=== PATIENT | female | born 1960 | race Caucasian/White ===

== ENCOUNTER 2017-08-12 18:12 | Emergency (ER) | payer BC ==
[2017-08-12] MEDS ORDERED: predniSONE TAB* 20 MG PO ONE (18:54)
[2017-08-12] MEDS ORDERED: Albuterol/Ipratropium NEB.SOL* Albuterol 2.5 MG/Ipratropium 0.5 MG 3 ML INH ONE (18:54)
[2017-08-12] MEDS ORDERED: Clarithromycin TAB* 500 MG PO ONE (20:23)
[2017-08-12] MEDS ORDERED: Albuterol HFA INHALER* 8 gm MDI INH ONE (20:23)
[2017-08-12 20:26] VITALS: BP 144/72
--- NOTE | 2017-08-12 22:01 | ED ---
Franco Hernandez Julia, scribed for Mars Houston MD on 08/12/17 at 1839 . Respiratory - HPI Summary HPI Summary: This patient is a 57 year old F presenting to [facility] accompanied by her with a chief complaint of chest and lung pain for the past five days. Patient reports chest congestion, productive cough with light coyle sputum and an explosion in back with cough. The patient rates the pain 6/10 in severity. Symptoms aggravated by cough. Symptoms unchanged by Mucinex. She states she gets bronchitis this time almost every year. - History of Current Complaint Chief Complaint: EDUpperRespComplaint Stated Complaint: DIFFICULTY BREATHING Time Seen by Provider: 08/12/17 18:31 Hx Obtained From: Patient Onset/Duration: Lasting Days Timing: Constant Pain Intensity: 6 Character: Cough (Productive) Sputum Color: Ortiz Aggravating Factor(s): Other - cough Alleviating Factor(s): Nothing Associated Signs and Symptoms: Chest Pain with Cough - chest congestion Related History: Similar Episode/Dx as - bronchitis - Allergy/Home Medications Allergies/Adverse Reactions: Allergies Allergy/AdvReac Type Severity Reaction Status Date / Time No Known Allergies Allergy Verified 08/12/17 18:35 Home Medications: Home Medications Cholecalciferol TAB* [Vitamin D TAB*] 1,000 unit PO DAILY 08/12/17 [History Confirmed 08/12/17] Citalopram TAB* [CeleXA TAB*] 40 mg PO DAILY 08/12/17 [History Confirmed ] Ibuprofen TAB* [Motrin TAB* 400 MG] 400 mg PO QPM 08/12/17 [History Confirmed ] PMH/Surg Hx/FS Hx/Imm Hx Endocrine/Hematology History: Denies: Hx Diabetes, Hx Thyroid Disease Cardiovascular History: Denies: Hx Congenital Heart Disease, Hx Congestive Heart Failure, Hx Hypertension, Hx Pacemaker/ICD Respiratory History: Reports: Hx Chronic Bronchitis Denies: Hx Asthma, Hx Chronic Obstructive Pulmonary Disease (COPD) GI History: Denies: Hx Ulcer Musculoskeletal History: Reports: Hx Back Problems Denies: Hx Osteoporosis Sensory History: Denies: Hx Hearing Aid Neurological History: Denies: Hx CVA, Hx Seizures - this admit ?SZ Psychiatric History: Denies: Hx Panic Disorder - Cancer History Hx Chemotherapy: No Hx Radiation Therapy: No - Surgical History Surgery Procedure, Year, and Place: T & A. Bariatric Infectious Disease History: No Infectious Disease History: Denies: Hx Hepatitis, Hx Human Immunodeficiency Virus (HIV), Traveled Outside the [place] in Last 30 Days - Family History Known Family History: Positive: Cardiac Disease - [place], Other - lung and prostate CA - Social History Alcohol Use: Rare Substance Use Type: Reports: None Smoking Status (MU): Former Smoker Review of Systems Positive: Chest Pain Positive: Shortness Of Breath, Cough, Other - chest congestion All Other Systems Reviewed And Are Negative: Yes Physical Exam - Summary Physical Exam Summary: Appearance: The patient is well-nourished in no acute distress and in no acute pain. Skin: The skin is warm and dry and skin color reflects adequate perfusion. HEENT: The head is normocephalic and atraumatic. The pupils are equal and reactive. The conjunctivae are clear and without drainage. Nares are patent and without drainage. Mouth reveals moist mucous membranes and the throat is without erythema and exudate. The external ears are intact. The ear canals are patent and without drainage. The tympanic membranes are intact. Neck: the neck is supple with full range of motion and non-tender. There are no carotid bruits. There is no neck vein distension. Respiratory: Chest is non-tender. Lungs have expiratory wheezes and breath sounds are tight with increased E:I ratio. Cardiovascular: Heart is regular rate and rhythm. There is no murmur or rub auscultated. There is no peripheral edema and pulses are symmetrical and equal. Abdomen: The abdomen is soft and non-tender. There are normal bowel sounds heard in all four quadrants and there is no organomegaly palpated. Musculoskeletal: There is no back tenderness noted. Extremities are non-tender with full range of motion. There is good capillary refill. There is no peripheral edema or calf tenderness elicited. Neurological: Patient is alert and oriented to person, place and time. The patient has symmetrical motor strength in all four extremities. Cranial nerves are grossly intact. Deep tendon reflexes are symmetrical and equal in all four extremities. Psychiatric: The patient has an appropriate affect and does not exhibit any anxiety or depression. Triage Information Reviewed: Yes Vital Signs On Initial Exam: Initial Vitals Temp Pulse Resp BP Pulse Ox 98.3 F 88 18 145/73 99 08/12/17 18:18 08/12/17 18:18 02/11/18 18:18 08/12/17 18:18 08/12/17 18:18 Vital Signs Reviewed: Yes Diagnostics - Vital Signs Vital Signs Temp Pulse Resp BP Pulse Ox 08/12/17 18:18 98.3 F 88 18 145/73 99 - Laboratory Lab Statement: Any lab studies that have been ordered have been reviewed, and results considered in the medical decision making process. Disposition - Course Course Of Treatment: Ms. Ascencio presented with 5 days of URI symptoms and now having some trouble breathing and CP with coughing. She was quite tight and got a lot of improvement with a nebulizer. I will treat her for bronchitis with bronchospasm. - Diagnoses Provider Diagnoses: Bronchitis with bronchospasm Discharge - Discharge Plan Condition: Stable Disposition: HOME Prescriptions: Clarithromycin TAB* [Biaxin TAB*] 500 mg PO BID #20 tab methylPREDNISolone [Medrol Dosepak 4 MG*] 4 mg PO .SEE TRACE INSTRUCTION #1 tab Patient Education Materials: Acute Bronchitis (ED) Forms: *Work Release Referrals: Angeline Vasquez MD [Primary Care Provider] - 1 Week Additional Instructions: RETURN TO THE EMERGENCY DEPARTMENT FOR CHANGING OR WORSENING SYMPTOMS. The documentation as recorded by the Franco dobson Julia accurately reflects the service I personally performed and the decisions made by , Mars Houston MD.
== END 2017-08-12 20:33 | disposition home or self-care (01) ==
LOC: ED 18:12
DX: J40 Bronchitis, not specified as acute or chronic (principal); J98.01 Acute bronchospasm
CPT/HCPCS: 94640; 99282; A9270-GY; J7512

== ENCOUNTER 2018-11-11 11:35 | Day surgery (SDC) | payer OTHER, BC ==
[2018-11-11] MEDS ORDERED: Lidocaine 1% MPF wEPI 200,000* 30 ML SDV ONE (12:17)
[2018-11-11] MEDS ORDERED: Sodium Bicarbonate 8.4%* 50 ML SYRINGE ONE (12:17)
[2018-11-11] MEDS ORDERED: Bupivacaine 0.25% SDV PF* 10 ML VIAL INJ ONE (13:43)
[2018-11-11] MEDS ORDERED: Lidocain 1% EPI 1:100,000 * 30 ML MDV ONE (13:43)
[2018-11-11] MEDS ORDERED: Lidocaine 1% INJ* 10 MG/ML 30 ML SDV ONE (13:53)
[2018-11-11] MEDS ORDERED: Buffered Lidocaine 1% SYRIN* 1 ML/SYRINGE INTRADERM ONE (13:54)
[2018-11-11 15:09] VITALS: BP 151/81
--- NOTE | 2018-11-11 23:43 | OP ---
DATE OF OPERATION: 11/11/18 - SDS DATE OF : 56 SURGEON: Kolby Godwin MD ROUNDING MACHINE OPERATOR: MARYBEL Ivy ANESTHESIOLOGIST: None. ANESTHESIA: Local only with 1% lidocaine with epinephrine and bicarbonate. PRE-OP DIAGNOSIS: Right ring trigger finger. POST-OP DIAGNOSIS: Right ring trigger finger. OPERATIVE PROCEDURE: Right ring trigger finger release at the A1 bhupinder with tenosynovectomy. INDICATIONS: Candace has very severe trigger finger. She is unable to fully close the hand. I told that we needed to intervene to regain her motion. She understands this and she wishes to proceed. ESTIMATED BLOOD LOSS: 5 mL. COMPLICATIONS: None. FINDINGS: See above and below. DESCRIPTION OF PROCEDURE: Candace was seen in the preoperative holding area. The correct side, site, and procedure were identified. I did anesthetize the finger in the preoperative area with the local anesthetic and then came back to the operating room where the arm was prepped and draped in the usual fashion. I made a 1 cm longitudinal incision over the A1 bhupinder. Full-thickness flaps were bluntly raised off the tendon sheath. Ragnell retractors were placed. The A1 bhupinder was incised longitudinally along the radial third with the 15 blade and the release was completed distally and proximally with the tenotomy scissors. The patient then flexed and extended the hand multiple times. There was no more catching. I had performed a tenosynovectomy as well. At this point , everything was looking good, so I irrigated out the wounds. The skin was closed with 4-0 nylon suture. Soft dressings were applied and she was taken to the recovery room in stable condition. [id number]/CPS #: [id number] [facility]
== END 2018-11-11 14:55 | disposition home or self-care (01) ==
LOC: OR 11:35
PROVIDERS: ATTEND Orthopaedic Surgery Hand Surgery
DX: M65.341 Trigger finger, right ring finger (principal); J45.909 Unspecified asthma, uncomplicated; F41.8 Other specified anxiety disorders; Z98.84 Bariatric surgery status
CPT/HCPCS: J2001; J3490

== ENCOUNTER 2024-01-01 14:35 | Observation (INO) ==
[2024-01-01 14:57] LABS: ABS Eosinophils 0.1 10^3/uL (0.0-0.5); ABS Lymphocytes 1.4 10^3/uL (1.0-4.8); ABS Monocytes 0.6 10^3/uL (0.0-0.9); ABS Neutrophils 2.9 10^3/uL (1.5-7.6); Eosinophil % 1.6 %; Hematocrit 39.4 % (35-45); Hemoglobin 13.5 g/dL (11.5-14.3); Lymphocyte % 27.6 %; Mean Corpuscular Hemoglobin 29.5 pg (27-33); Mean Corpuscular Hgb Conc 34.3 g/dL (31-36); Mean Corpuscular Volume 85.9 fL (80-97); Platelet Count 201 10^3/uL (150-450); Red Blood Count 4.59 10^6/uL (3.63-4.92); Red Cell Distribution Width 12.8 % (12-17)
[2024-01-01 15:07] LABS: Activated Partial Thrombo Time 31.8 seconds (26.0-38.0); INR 0.91 (0.83-1.13)
[2024-01-01] MEDS: Labetalol IV 5 MG/ML 20 ml VIAL IV PUSH ONE (15:11)
[2024-01-01] MEDS: Magnesium Sulfate 2 gm BAG 2 GM/50 ML BAG IVPB ONE (15:12)
[2024-01-01 15:41] LABS: Albumin 4.5 g/dL (3.2-5.2); Albumin/Globulin Ratio 2.3 (1-3); Calcium 9.7 mg/dL (8.6-10.3); Creatinine, Serum 0.7 mg/dL (0.51-0.95); Total Bilirubin 0.6 mg/dL (0.2-1.0); Total Protein 6.5 g/dL (6.4-8.9); eGFR CKD-EPI 95.9 (>60)
[2024-01-01] MEDS: Ondansetron 4 mg VIAL 2 MG/ML 2 ml VIAL IV ONE (16:32)
[2024-01-01 16:34] LABS: High Sensitivity Troponin 1 Hr 11 pg/mL (<15)
[2024-01-01] MEDS ORDERED: Albuterol HFA INHALER 8 gm MDI INH PRN (17:43)
[2024-01-01] MEDS: Gadoteridol (CONTRAST) 279.3 MG/ML 10 ML IV ONE (20:22)
[2024-01-01] MEDS: Enoxaparin 40 MG/0.4 ML SYR SUBCUT SCH (21:17)
[2024-01-02 06:03] LABS: ABS Eosinophils 0.1 10^3/uL (0.0-0.5); ABS Lymphocytes 1.2 10^3/uL (1.0-4.8); ABS Monocytes 0.7 10^3/uL (0.0-0.9); ABS Neutrophils 2.8 10^3/uL (1.5-7.6); Eosinophil % 2.7 %; Lymphocyte % 25.7 %; Mean Corpuscular Hemoglobin 30.3 pg (27-33); Mean Corpuscular Hgb Conc 35.3 g/dL (31-36); Mean Corpuscular Volume 85.9 fL (80-97); Mean Platelet Volume 7.7 fL (7.5-11.2); Nucleated Red Blood Cells % 0.1 %/100WBC (0.0-0.8); Platelet Count 175 10^3/uL (150-450); Red Cell Distribution Width 12.7 % (12-17); White Blood Count 4.9 10^3/uL (3.8-11.8)
[2024-01-02 06:19] LABS: Creatinine, Serum 0.71 mg/dL (0.51-0.95); Magnesium 2.3 mg/dL (1.9-2.7); Potassium 4.2 mmol/L (3.5-5.0); eGFR CKD-EPI 94.3 (>60)
[2024-01-02 09:48] VITALS: BP 131/81
== END 2024-01-02 11:03 | disposition home or self-care (01) ==
LOC: ED 14:35 → EDHOLD 14:35 → MEDTELE 18:10
PROVIDERS: ADMIT Internal Medicine; ATTEND Internal Medicine